=== PATIENT | male | born 1990 | race Hispanic/Latino ===

== ENCOUNTER 2022-01-29 19:11 | Emergency (ER) | payer OTHER ==
[~2022-01-29] VITALS: Ht 180.3 cm; Wt 138.8 kg
[2022-01-29 19:14] VITALS: BP 172/86
[2022-01-29] MEDS ORDERED: TRANEXAMIC ACID 1000MG/10ML IV STA (21:41)
== END 2022-01-29 23:37 | disposition home or self-care (01) ==
LOC: EDH 19:11
DX: K91.840 Postprocedural hemorrhage of a digestive system organ or structure following a digestive system procedure (principal); E11.9 Type 2 diabetes mellitus without complications
CPT/HCPCS: 99283; 96374; J3490